=== PATIENT | female | born 1980 | race Caucasian/White ===

== ENCOUNTER 2021-08-02 07:28 | Emergency (ER) | payer OTHER ==
[~2021-08-02] VITALS: Ht 154.9 cm; Wt 59.0 kg
== END 2021-08-02 12:53 | disposition home or self-care (01) ==
LOC: ER 07:28
DX: J06.9 Acute upper respiratory infection, unspecified (principal); A49.3 Mycoplasma infection, unspecified site; Z03.818 Encounter for observation for suspected exposure to other biological agents ruled out

== ENCOUNTER 2021-08-06 08:23 | Emergency (ER) | payer OTHER ==
[~2021-08-06] VITALS: Ht 154.9 cm; Wt 59.0 kg
[2021-08-06] MEDS ORDERED: PROMETH-CODEIN 65 ML PO (11:04)
[2021-08-06] MEDS ORDERED: MEDROLPACK PO (11:04)
[2021-08-06] MEDS ORDERED: IPRAT-ALBUT 0.5-3 ML IH (11:04)
== END 2021-08-06 12:20 ==
LOC: ER 08:23
DX: J20.9 Acute bronchitis, unspecified (principal); A49.3 Mycoplasma infection, unspecified site; J06.9 Acute upper respiratory infection, unspecified; Z03.818 Encounter for observation for suspected exposure to other biological agents ruled out

== ENCOUNTER 2021-08-17 15:04 | Emergency (ER) | payer OTHER ==
[~2021-08-17] VITALS: Ht 154.9 cm; Wt 59.0 kg
[~2021-08-17 15:04] MED LIST: IPRAT-ALBUT 0.5-3 ML IH; MEDROLPACK PO; PROMETH-CODEIN 65 ML PO
[2021-08-17] MEDS ORDERED: MUCINEX DM ER1 EAC1 PO (18:29)
[2021-08-17] MEDS ORDERED: MEDROLPACK PO (18:29)
== END 2021-08-17 19:02 | disposition home or self-care (01) ==
LOC: ER 15:04
DX: R05.8 Other specified cough (principal); J42 Unspecified chronic bronchitis

== ENCOUNTER 2021-10-20 06:48 | Emergency (ER) | payer OTHER ==
[~2021-10-20] VITALS: Ht 154.9 cm; Wt 63.0 kg
[~2021-10-20 06:48] MED LIST changes: +ACETAMINOPHEN650 M2; +MUCINEX DM ER1 EAC1 PO
== END 2021-10-20 11:32 | disposition home or self-care (01) ==
LOC: ER 06:48
DX: U07.1 COVID-19 (principal)